=== PATIENT | female | born 1935 | race Native Hawaiian/Other Pacific Islander ===

== ENCOUNTER 2016-10-05 06:24 | Outpatient (CLI) | payer OTHER, BC ==
[~2016-10-05 06:24] MED LIST: ALISKIREN OR; AMLODIPINE OR; ASA LO-DOSE81 MG OR; CALCIUM + D600 MG OR; DEMADEX10 MG PO; MYRBETRIQ ER PO; PRESERVISION OR; RESTASIS0.05 % OP; SINGULAIR5 MG OR; [UNRECOGNIZED DRUG - CODE] OR
[2016-10-05 06:54] LABS: PLATELET COUNT 224 K/uL (152-353)
[2016-10-05 08:37] LABS: SODIUM 135 mmol/L (136-145)
== END 2016-10-05 19:18 | disposition home or self-care (01) ==
LOC: LABW 06:24
PROVIDERS: Internal Medicine Cardiovascular Disease
DX: I10 Essential (primary) hypertension (principal)
CPT/HCPCS: 36415; 80053; 80061; 84443; 85027